=== PATIENT | female | born 1935 | race Caucasian/White ===

== ENCOUNTER 2018-05-15 09:14 | Observation (INO) | payer OTHER ==
--- NOTE | 2018-05-15 09:16 | EDPHY ---
H & P Time Seen by Provider: 05/15/18 09:15 HPI/ROS: CHIEF COMPLAINT: Right shoulder injury in pain HISTORY OF PRESENT ILLNESS: 83-year-old female via ambulance, not a trauma activation, complaining of isolated right shoulder and humerus pain after she sustained a mechanical fall, hyper abducted her right shoulder. Complaining of acute right shoulder and humerus pain. EMS administered pre-hospital ketamine and fentanyl resulting in pain with relief. PRIMARY CARE PROVIDER: Dr. Rene Glass at [facility] REVIEW OF SYSTEMS: 10 systems reviewed and negative with the exception of the elements mentioned in the history of present illness PAST MEDICAL/SURGICAL HISTORY: no anticoagulant use, hyperlipidemia. Occurred SOCIAL HISTORY: denies alcohol use at time of incident. Lives by herself in [place] PHYSICAL EXAM 1) GENERAL: Well-developed, well-nourished, alert and oriented. Appears to be in no acute distress. Answering questions appropriately. Smiling, talkative making jokes 2) HEAD: Normocephalic, atraumatic 3) HEENT: Pupils equal, round, reactive to light bilaterally. Negative Horners. Nasopharynx, oropharynx, clear. No deformity or angulation of nose. No septal hematoma. No rhinorrhea. No oral trauma. Ears bilaterally with normal tympanic membranes. No hemotympanum. No fluid or blood in the external auditory canal. No raccoon eyes. No Benito sign. Teeth are normally aligned with no gross malocclusion, TMJ bilaterally nontender, facial bones nontender including the zygomatic arch, maxilla mandible. 4) NECK: No cervical collar is on. Posterior cervical spine is nontender, no stepoff, no effusion. Full range of motion which does not elicit any midline cervical spine pain, no posterior midline tenderness, no step-off. 5) LUNGS: Clear to auscultation bilaterally, no wheezes, no rhonchi, no retractions. No obvious signs of trauma. No chest wall pain. No flaring, no grunting. Moving symmetrically. No crepitus. 6) HEART: [Regular rate and rhythm, 7) ABDOMEN: No guarding, no rebound, no focal tenderness, no peritoneal signs, no signs of trauma, no ecchymosis 8) MUSCULOSKELETAL: Right upper extremity: Sling in place, tender to palpation proximal humerus. No visible step-off. No puncture wound. Distal neurovascular status intact with brisk pulses and capillary refill normal color normal temperature distally. No puncture wound no bleeding. Otherwise, Moving all extremities, no focal areas of tenderness, no obvious trauma. Specifically, bilateral hips and legs are examined and are nontender with full pain-free range of motion 9) BACK: No midline vertebral tenderness, no fluctuance, no step-off, no obvious trauma, no visual or palpable abnormality. 10) SKIN: No laceration. No abrasion DIFFERENTIAL DIAGNOSIS: In no particular order including but not limited to fracture, sprain, strain, dislocation Constitutional: Initial Vital Signs Temperature (C) 36.8 C 05/15/18 09:24 Heart Rate 78 05/15/18 09:24 Respiratory Rate 20 05/15/18 09:24 Blood Pressure 160/70 H 05/15/18 09:24 O2 Sat (%) 96 05/15/18 09:24 O2 Delivery Mode Nasal Cannula O2 (L/minute) 2 Allergies/Adverse Reactions: ciprofloxacin [From Cipro] Allergy (Verified 05/15/18 10:57) Loss of consciousness Penicillins Allergy (Verified 05/15/18 10:57) Unknown Sulfa (Sulfonamide Antibiotics) Allergy (Verified 05/15/18 10:57) Unknown Home Medications: Medication Instructions Recorded Acetaminophen [Tylenol ES 500 mg 1,000 mg PO BID 05/15/18 (*)] Aspirin [Aspirin 81mg (*)] 81 mg PO HS 05/15/18 Calcium Carbonate [Oyster Shell 500 mg PO BID 05/15/18 Calcium 500 mg (*)] Cyanocobalamin [Vitamin B12 (*)] 1,000 mcg PO DAILY 05/15/18 Herbals/Supplements -Info Only 1 ea PO DAILY 05/15/18 Lactase [Lactase 3000 Unit (*)] 9,000 unit PO BID 05/15/18 Multivitamins [Multivitamin (*)] 1 each PO DAILY 05/15/18 Omeprazole 20 mg PO DAILY 05/15/18 Simvastatin [Zocor] 40 mg PO HS 05/15/18 Medical Decision Making - Diagnostics Imaging Results: Imaging Impressions Humerus X-Ray 05/15/18 09:22 Impression: Spiral fracture proximal humerus. 2. Right Humerus, 2 views History: Pain post fall Findings: The proximal humeral fracture is confirmed. The distal humerus is intact, without angulation below the level of the more proximal fracture. Impression: Intact distal humerus. Shoulder X-Ray 05/15/18 09:22 Impression: Spiral fracture proximal humerus. 2. Right Humerus, 2 views History: Pain post fall Findings: The proximal humeral fracture is confirmed. The distal humerus is intact, without angulation below the level of the more proximal fracture. Impression: Intact distal humerus. Images reviewed myself ED Course/Re-evaluation: 9:22 a.m.: Greeted EMS on arrival. Will obtain x-rays of the right shoulder and humerus. Patient describes a mechanical, non syncopal episode with no signs of head or other injury. No signs of intoxication or altered mental status. 10:30 a.m.: Re-evaluation, patient is neurovascular intact. Reviewed her imaging studies with her and her son in the room. Pain management has been challenging this patient pain. I am concerned about this patient's ability to care for self as she lives in a multi story home, by herself in [place]. Recommended admission for pain control, PT OT, orthopedic consult, which patient and son are agreeable with . I saw this patient independently based on established practice protocols. Care of patient under supervision of secondary supervising physician Dr Harmon with whom I discussed case and who evaluated the patient as well. 10:25 a.m.: Reviewed the imaging studies with the patient, discussed with patient whether I could electronically transmitted images of her x-ray to the on -call orthopedic and she verbally consents. 10:30 a.m.: Consultation with hospitalist, Maylin, it to Dr. Cota. Awaiting callback from Orthopedics. 11:00 a.m.: Electronic communication with Dr. Wylie who has reviewed the patient 's images and will consult. - Data Points Medications Given: Discontinued Medications Hydromorphone HCl (Dilaudid) 0.5 mg IVP EDNOW ONE Stop: 05/15/18 10:18 Last Admin: 05/15/18 10:18 Dose: 0.5 mg Departure - Departure Disposition: [facility] Inpatient Acute Clinical Impression: Fracture of neck of right humerus Qualifiers: Encounter type: initial encounter Fracture type: closed Qualified Code(s): S42.211A - Unspecified displaced fracture of surgical neck of right humerus, initial encounter for closed fracture Condition: Fair
[2018-05-15] MEDS ORDERED: HYDROmorphONE/DILAUDID 1 MG/ML INJ ONE (10:13)
[2018-05-15] MEDS ORDERED: HYDROmorphONE/DILAUDID 2 MG/ML INJ IVP ONE (10:17)
[2018-05-15 11:15] LABS: PLATELET COUNT 176 10^3/uL (150-400)
[2018-05-15] MEDS ORDERED: LORazepam 2 MG/ML INJ IVP ONE (11:21)
[2018-05-15 11:35] LABS: INR 1.02 (0.83-1.16); PROTIME(PATIENT) 13.6 SEC (12.0-15.0)
--- NOTE | 2018-05-15 12:06 | PDCONSULT ---
Line O Scribe Operator Note: ortho consult: nidia is a pleasant 83 yo female, presenting today biba after she fell and had her right arm get caught behind her and stretched/torqued backwards/in and reports an immediate flash of pain and inability to move the arm, but no numbness/tingling and did not hit her head and remembers everything, reports minimal pain as long as she doesn't move the arm, and otherwise it is a sharp non-radiating pain, without any numbness/tingling reported in her fingers. she denies fevers/chills, nvdc, cp/sob, calf pain, bowel/bladder issues PMH: HLD, GERD, hx of cdiff PSH: JAKOB-BSO, orthopedic finger surgery allergies: cipro, penicillin, sulfa meds: zocor, omeprazol, tylenol, multiple multiviatmins/supplements/herbal supplements listed in her med list in [facility] sh: rarely alcohol, denies any smoking or recreatino drugs fh: no pertinent orthopedic fh, maternal heart disease/HI, paternal kidney failure PE 83 yo appearing female resting comfortably in bed with her right upper extremity in sling, no obvious distress. RUE: no erythema/ecchymosis, moderately ttp over fracture site/humeral head and surrounding soft tissue, nttp acj/clavicle/coracoid, no shoulder rom assessed, full elbow rom w/o pain, full wrist/digit rom w/o pain, grossly nvid w/ brisk cap refill, and resistance against wrist extension humerus x-rays reviewed: demonstrate intact distal humerus, spiral fracture of proximal humerus 83 yo female, presenting today for fall right prox hum fracture -probable non-op given she is predominantely LHD and risks of surgery may out way benefits of surgical fixation as this fracture may stand a good chance to heal non-operatively with sling placement, non-weight bearing and no shoulder rom, and orthopedic interval follow up with interval x-rays to monitor for acceptable alignment and healing. -proph/pain per primary, she is admitted to medicine dr herrmann will round and discuss non-operative and operative treatment options with patient. orthopedics will continue to follow while in hospital thank you for this consultation. Oliver Olvera PA-C
[2018-05-15] MEDS ORDERED: ONDANSETRON 4 MG/2 ML VIAL IVP PRN (12:57)
[2018-05-15] MEDS ORDERED: ONDANSETRON DISINTEGRATING 4 MG TAB PO PRN (12:57)
[2018-05-15] MEDS ORDERED: LORazepam 0.5 MG TAB PO PRN (12:57)
[2018-05-15] MEDS: oxyCODONE IR 5 MG TAB PO PRN (13:20)
--- NOTE | 2018-05-15 13:37 | GHP ---
DATE OF ADMISSION: 05/15/2018 CHIEF COMPLAINT: Right shoulder pain after falling. HISTORY OF PRESENT ILLNESS: Zack Adams is an 83-year-old female without any significant past medical history. She was brought to the emergency room after sustaining a mechanical fall and hyperabducted her right shoulder area. She lives independently at home and was walking. She has old fashioned linoleum floors and had socks on. The floor was quite slippery and she fell on her buttocks and then hit her elbow on the corner of the table with her arm flying up. During my interview, she is having very little pain. She was given ketamine and fentanyl resulting in good relief in the emergency room. She denies any chest pain, shortness of breath, any type of dizziness. PAST MEDICAL HISTORY: 1. Hyperlipidemia. 2. Gastroesophageal reflux disease. 3. History of Clostridium difficile after receiving Cipro. PAST SURGICAL HISTORY: 1. Hysterectomy. 2. Finger surgery. FAMILY HISTORY: Her mother of complications of an VT at age 89. Her father of kidney failure at age 89. SOCIAL HISTORY: She is x10 years. She lives alone in the [facility]. She is quite independent. She has 2 daughters from her ' s marriage and 2 sons from her marriage with him. She does not smoke. She rarely drinks a glass of wine. She worked as a homemaker. ALLERGIES: Multiple. Cipro causes Clostridium difficile. Explained to her this is not an actual allergy. Penicillin causes hives. Sulfa, she is not sure. REVIEW OF SYSTEMS: A 10-point review of system was performed and was negative other than pertinent positives in HPI and past medical history. HOME MEDICATIONS: Zocor 40 mg p.o. at bedtime, omeprazole 20 mg daily, herbal supplements 1 tab daily, aspirin 81 mg daily, Tylenol 1000 mg twice daily, multivitamin 1 tab daily, lactase 9000 units twice daily, vitamin B12 1000 mcg daily, and calcium 500 mg p.o. twice daily. PHYSICAL EXAM: GENERAL: The patient is an 83-year-old female, who appears to be in excellent health. VITAL SIGNS: Blood pressure is 109/62, heart rate of 58, respiratory rate of 15, O2 sats on 2 L are 97%, temperature is 36.4 Celsius. EYES: Pupils are equal and reactive. EOMs are intact. No conjunctival injection noted. She is wearing glasses. ENT: Normal ears. Hearing intact. Normal lips, teeth. Oral airway is moist. NECK: Trachea is midline. CARDIOVASCULAR: Regular rate and rhythm. No murmurs, rubs, or gallops noted. She has 2+ pedal pulses. CHEST/LUNGS: Normal respiratory effort. Clear without wheezing, rales, rhonchi. ABDOMEN: Soft nontender. SKIN: No rashes, ulcer. Warm, dry, and intact. She has good CMS on her right hand, but fingers are slightly cool. MUSCULOSKELETAL: She has equal upper and lower extremity strength, except for her right arm. PSYCHIATRIC: She is alert and oriented. Normal mood and affect. Normal judgment, insight and normal memory. DATA: Reviewed. Laboratory data shows white blood cell count of 9.37, hemoglobin 13.5, hematocrit of 40, platelet count of 176. Coags: Pro time 13.6 , INR 1.02, PTT of 24.7. Chemistry: Sodium is 140, potassium 4.2, CO2 of 28, BUN of 28, creatinine of 0.9, glucose of 114, calcium of 9.4. Humerus x-ray shows an intact distal humerus. Right shoulder x-ray shows a spiral fracture, proximal humerus. I reviewed the patient's care with Frandy John, physician care team assistant, in the emergency room and with Dm Olvera PA-C, with orthopedic surgery. ASSESSMENT/PLAN: 1. Right proximal humerus fracture. For now, will place her in a sling. This is likely nonoperable. Fortunately, she is left-hand dominant. Will ask Physical Therapy and Occupational Therapy to see her. In addition, she has a friend who will be able to stay with her if discharged home tomorrow. 2. Pain due to this. Will order p.r.n. pain medications as well as scheduled Tylenol. 3. History of constipation. Resumed her probiotics. Will place her on a bowel protocol. 4. Gastroesophageal reflux disease. PPI. 5. Hypoxemia. Most likely due to receiving narcotics. Will follow. 6. Deep venous thrombosis prophylaxis. She is moderate to high risk. Will initiate low molecular weight heparin. 7. Code status. Do not resuscitate. 8. Length of stay: She will require likely less than a 2-midnight stay, which will make her observation status. This can be further evaluated if needed. /[id number]/MODL MTDD
[2018-05-15] MEDS: ACETAMINOPHEN 500 MG TAB PO SCH ×2 (20:29→22:00)
[2018-05-15] MEDS: CALCIUM CARBONATE 500 MG TAB PO SCH (20:30)
[2018-05-15] MEDS: LACTASE 3,000 UNIT TAB PO SCH (20:34)
[2018-05-16] MEDS: oxyCODONE IR 5 MG TAB PO PRN ×3 (02:55→14:40)
[2018-05-16] MEDS: LACTASE 3,000 UNIT TAB PO SCH (07:51)
[2018-05-16] MEDS: CYANO/VITAMIN B12 1000 MCG TAB PO SCH ×3 (07:51→07:57)
[2018-05-16] MEDS: CALCIUM CARBONATE 500 MG TAB PO SCH (07:52)
[2018-05-16] MEDS: ACETAMINOPHEN 500 MG TAB PO SCH (07:52)
[2018-05-16] MEDS ORDERED: ATORVASTATIN CALCIUM 20 MG TAB PO SCH (09:00)
[2018-05-16] MEDS ORDERED: ENOXAPARIN 40 MG/0.4 ML SYR SC SCH (09:00)
[2018-05-16] MEDS ORDERED: MULTIVITAMINS 1 EACH TAB PO SCH (09:00)
--- NOTE | 2018-05-16 11:10 | ASMTCMCOM ---
CM Note CM Note Notes: Pt has humerus fx after fall at home where she resides alone. Pt has friend/family who can provide 24/hr supervision. PT rec HHC, OT rec pending. Pt amenable to HHC, chooses [facility]. D/c plan of care: [facility] PT/OT Date Signed: 05/16/2018 11:09 AM Electronically Signed By:JORDEN Rivera
[2018-05-16 11:34] VITALS: BP 135/74
--- NOTE | 2018-05-16 14:50 | SOAPPROG ---
SOKARISHMA Progress Note Assessment/Plan: Assessment: R proximal humerus fx. Good pain control Plan: 05/16/18 14:[address] [facility] next week for shoulder xrays and assess fracture alignment Subjective: HD 1. in good spirits. wants to go home Objective: Vital Signs Temp Pulse Resp BP Pulse Ox 36.6 C 63 16 135/74 H 91 L 05/16/18 11:34 05/16/18 11:34 05/16/18 11:34 05/16/18 11:34 05/16/18 11:34 Laboratory Results 05/15/18 11:00 05/15/18 11:00 05/15/18 05/16/18 05/17/18 05:59 05:59 05:59 Intake Total 650 650 Output Total 700 Balance -50 650 PT 13.6 SEC (12.0-15.0) 05/15/18 11:00 INR 1.02 (0.83-1.16) 05/15/18 11:00 sling mobile hands swollen R shoulder mobile knees and hips sensate Right shoulder ICD10 Worksheet Patient Problems: Problems Problem Status Onset Fracture of neck of right humerus Acute
--- NOTE | 2018-05-16 15:28 | PDIAF ---
- Diagnosis Diagnosis: Right humerus fracture, proximal treated conservatively Code Status: Do Not Resuscitate - Medication Management Discharge Medications: electronically signed and located in the Home Medication List. - Orders Services needed: Home Care, Physical Therapy, Occupational Therapy Home Care Face to Face: I certify that this patient was under my care and that I had the required [id number]-na-upur encounter meeting the encounter requirements on the discharge day. My findings support the fact that the patient is homebound as defined in Home Care Face to Face Continued: CMS Chapter 7 Medicare Benefits Manual 30.1.1 , The condition of the patient is such that there exists a normal inability to leave home and consequently, leaving home would require a considerable and taxing effort. Diet Recommendation: no restrictions on diet Diet Texture: Regular Texture Diet Equipment: Shoulder sling for immobilization - Follow Up Care Current Providers and Referrals: Jojo Wylie MD [Medical Doctor] -
--- NOTE | 2018-05-16 15:34 | PDDCSUM ---
Discharge Summary Discharge Summary: DISCHARGE DIAGNOSES: * fall at home with injury, mechanical fall * right proximal he humeral fracture * osteoporosis by definition new CONSULTANTS: Dr. Wylie of [facility] COURSE SUMMARY: This patient who is quite healthy and lives independently at home, was walking across a slow bleed floor with socks on her feet when she slipped and fell catching her elbow on furniture. The result was a proximal right humerus fracture. There is no evidence of other injury. She came into the emergency room and due to pain it was felt that she was unsafe for ambulation in the ER so was observed overnight. She has had no other complications or problems here in the hospital. She is now up walking about independently very well and doing activities of daily living with her right arm in a shoulder sling. She is tolerating the pain reasonably well with minimal pain medications so far. She was seen by Orthopedics consult who felt that conservative therapy was appropriate and the patient is in agreement with this. The plan will be for her to have weekly x-rays and keep the arm in a sling with no range of motion until sufficient healing. She has family staying with her in her house over the next several days and a friend who will be coming from out of town to stay with her for a couple of weeks. Is felt that she is safe at home and is stable for discharge at this time. By definition she has osteoporosis and it is recommended that she follow up with her primary care physician for further assessment and definitive management of her bone health and this is review with her here in detail. PENDING TEST RESULTS: None MEDICATION CHANGES: None FOLLOW-UP PLAN: With Dr. Wylie in 1 week With her primary care physician in 2-4 weeks to review bone health and other issues around fall prevention
--- NOTE | 2018-05-17 10:28 | ASDISCHSUM ---
Discharge Information Plan Status:Home with Home Health Medically Cleared to Leave: Discharge Date:05/16/2018 04:10 PM CM D/C Disposition: ADT D/C Disposition:Home, Routine, Self-Care Projected Discharge Date:05/17/2018 11:00 AM Transportation at D/C: Discharge Delay Reason: Follow-Up Date:05/17/2018 11:00 AM Discharge Slot: Final Diagnosis: Placement Information Referral Type:*Home Health Care Services Referral ID:[facility]-[id number] Provider Name:[facility] Address 1:[address] [place] [address] Address 2: City:[place] Selection Factors: State:[place] Patient Contact Information Contact Name:CHRISS Relationship:Son Address: Work Phone: [facility]:[place] Alternate Phone: State/[facility] Code:[place] Email: Financial Information Financial Class:Medicare Primary Plan Desc:MEDICARE OUTPATIENT Primary Plan Number:[id number] Secondary Plan Desc:[facility] LOCAL Secondary Plan Number:[id number] Assessment Information LACE LACE Length of stay for Answers: 2 days current admission Comorbidities - select Answers: Other Notes: HLD; GERD all that apply # of Emergency department Answers: 1-2 visits in the last 6 months Score: 4 Date Signed: 05/17/2018 10:27 AM Electronically Signed By:JORDEN Rivera [facility] Progress Note CM Note CM Note Notes: Pt has humerus fx after fall at home where she resides alone. Pt has friend/family who can provide 24/hr supervision. PT rec [facility], OT rec pending. Pt amenable to [facility], chooses [facility]. D/c plan of care: [facility] PT/OT Date Signed: 05/16/2018 11:09 AM Electronically Signed By:JORDEN Rivera Intervention Information Intervention Type:*HERNANDEZ-Signed Date of Service:05/15/2018 03:49 PM Patient Type:Observation Staff Member:Ria Tovar Hours: Discipline: Severity: Comment:
== END 2018-05-16 16:10 | disposition home health service (06) ==
LOC: F3N 12:18
PROVIDERS: ADMIT Internal Medicine; ATTEND Internal Medicine
DX: S42.291A Other displaced fracture of upper end of right humerus, initial encounter for closed fracture (principal); M81.0 Age-related osteoporosis without current pathological fracture; E78.5 Hyperlipidemia, unspecified; K21.9 Gastro-esophageal reflux disease without esophagitis; R09.02 Hypoxemia; T40.605A Adverse effect of unspecified narcotics, initial encounter; W01.190A Fall on same level from slipping, tripping and stumbling with subsequent striking against furniture, initial encounter; Y92.019 Unspecified place in single-family (private) house as the place of occurrence of the external cause; Z66 Do not resuscitate
CPT/HCPCS: 73030; 73060; 96372; 96374; 96375; 97116; 97161; 97165; 99285; G0378; G8978; G8979; G8987; G8988; J1170; J1650; J2060